=== PATIENT | male | born 1960 | race Asian ===

== ENCOUNTER 2017-10-11 07:20 | Day surgery (SDC) | payer BC ==
[2017-10-05 10:21] VITALS: BMI 25.7
[~2017-10-11 07:20] MED LIST: LACTATED RINGERS 1,000 ML IV SCH
[2017-10-11 07:41] VITALS: RESP 16; TEMP 97.4
[2017-10-11] MEDS ORDERED: LIDOCAINE 1% 20 ML VIAL (10MG/ML) FOR IV START INTRADERMA ONE (07:42)
[2017-10-11 07:57] LABS: Glucose,Whole Blood 182 mg/dL (75-99)
[2017-10-11] MEDS ORDERED: PROPOFOL 10 MG/ML 20 ML VIAL IV ONE (08:45)
--- NOTE | 2017-10-11 09:29 | P.PCN ---
Date of Procedure: 10/11/17 Procedure(s) Performed: Procedure: Total colonoscopy. Preoperative diagnosis: Screening for neoplasia. Postoperative diagnosis: Exam within normal limits. Preparation: HalfLytely prep. Sedation: Was provided by anesthesia. Brief clinical history: The patient is a 57-year-old male who is referred for this evaluation for screening for neoplasia age being his risk factor. He has no abdominal complaints, bleeding or anemia. No family history of colon cancer. This would be his first colonoscopy. Procedure: With the patient on his left lateral decubitus position and after informed consent and adequate sedation the perianal area was inspected and it did not show any fissures or fistulas. There were no masses felt on digital rectal examination. The Olympus CFQ 160L video colonoscope was then inserted in the rectum in the usual fashion and advanced to the cecum. The mucosa appeared healthy. No polyps or tumors were seen or any obvious diverticular disease. I retroflexed the endoscope in the rectum before the endoscope was withdrawn. The patient tolerated the procedure well. Plan: The patient was reassured. He will follow up with you as planned. I recommended repeat exam in 10 years.
[2017-10-11 10:13] LABS: Glucose,Whole Blood 224 mg/dL (75-99)
[2017-10-11 10:16] VITALS: BP 120/83; PULSE 83
== END 2017-10-11 10:43 | disposition home or self-care (01) ==
LOC: ORWHC2ENDO 07:20
DX: Z12.11 Encounter for screening for malignant neoplasm of colon (principal); E11.9 Type 2 diabetes mellitus without complications; I10 Essential (primary) hypertension; K21.9 Gastro-esophageal reflux disease without esophagitis; I25.10 Atherosclerotic heart disease of native coronary artery without angina pectoris; E78.5 Hyperlipidemia, unspecified; Z79.82 Long term (current) use of aspirin; Z79.84 Long term (current) use of oral hypoglycemic drugs; Z79.899 Other long term (current) drug therapy; Z95.5 Presence of coronary angioplasty implant and graft
CPT/HCPCS: G0121; J2704